=== PATIENT | female | born 1985 | race Caucasian/White ===

== ENCOUNTER 2022-02-13 12:18 | Emergency (ER) | payer SELFPAY ==
[~2022-02-13] VITALS: Ht 152.4 cm; Wt 69.9 kg
[2022-02-13 12:20] VITALS: BP 132/82
--- NOTE | 2022-02-13 12:20 | NUR ---
36 y/o female, pt states she had a uti and was given nitrofurantoin 02/11/22 for tx. states she started having rash, denies sob or throat closing. f/u with clinic and was told to take benadryl, no relief. pmh: denies nka med: benadryl
[2022-02-13] MEDS ORDERED: methylPREDNISolone SS 125 MG in WATER STERILE 2 ML IM ONE (13:05)
[2022-02-13] MEDS ORDERED: PRED20TA5 PO (13:56)
[2022-02-13] MEDS ORDERED: methylPREDNISolone SS 125 MG/2 ML VIAL ONE (14:37)
--- NOTE | 2022-02-13 14:45 | NUR ---
Patient discharged with v/s stable. Written and verbal after care instructions given and explained. Patient alert, oriented and verbalized understanding of instructions. Ambulatory with partner to car. All questions addressed prior to discharge. ID band removed. Patient advised to follow up with PMD. Rx of prednisone (sent) given. Patient educated on indication of medication including possible reaction and side effects. Opportunity to ask questions provided and answered.
[2022-02-13 14:46] VITALS: BP 132/82
== END 2022-02-13 14:45 | disposition home or self-care (01) ==
LOC: MED 12:18
DX: R21 Rash and other nonspecific skin eruption (principal); T36.95XA Adverse effect of unspecified systemic antibiotic, initial encounter; Y92.89 Other specified places as the place of occurrence of the external cause
CPT/HCPCS: 81002; 81025; 96372; 99283; J2930